=== PATIENT | male | born 1960 | race Two or more races ===

== ENCOUNTER 2017-03-14 12:35 | Inpatient (IN) | payer OTHER ==
[2017-03-14 13:01] VITALS: BMI 19.8
--- NOTE | 2017-03-14 13:42 | HP ---
CIWA Score - CIWA Score Nausea/Vomitin-Mild Nausea/No Vomiting Muscle Tremors: 4-Moderate,w/Arms Extend Anxiety: 4-Mod. Anxious/Guarded Agitation: 1-Slight > Activity Paroxysmal Sweats: 1-Minimal Palms Moist Orientation: 1-Uncertain about Date Tacttile Disturbances: 1-Very Mild Itch/Numbness Auditory Disturbances: 1-Very Mild Visual Disturbances: 1-Very Mild Sensitivity Headache: 1-Very Mild CIWA-Ar Total Score: 16 Admission [facility] - HPI Chief Complaint: I don't want to lose my job, I have to stop drinking. Allergies/Adverse Reactions: Allergies Allergy/AdvReac Type Severity Reaction Status Date / Time No Known Allergies Allergy Verified 12/02/15 14:05 History of Present Illness: 56 yo gentleman here for detox from alcohol - no seizure x 1 year and was taken off seizure meds - last detox 3 months ago at [facility]. Exam Limitations: Clinical Condition - Ebola screening Have you traveled outside of the country in the last 21 days: No Have you had contact with anyone from an Ebola affected area: No Have you been sick,other than usual withdrawal symptoms: No Do you have a fever: No - Review of Systems Constitutional: Loss of Appetite, Malaise, Changes in sleep, Weakness EENT: reports: No Symptoms Reported Respiratory: reports: Cough Cardiac: reports: No Symptoms Reported GI: reports: Nausea, Poor Appetite : reports: Frequency Musculoskeletal: reports: No Symptoms Reported Integumentary: reports: Rash (both arms (dry, scaly,itchy)) Neuro: reports: Headache, Tremors Endocrine: reports: No Symptoms Reported Hematology: reports: No Symptoms Reported Psychiatric: reports: Judgement Intact, Mood/Affect Appropiate, Anxious Other Systems: Reviewed and Negative Patient History - Patient Medical History Hx Anemia: No Hx Asthma: No Hx Chronic Obstructive Pulmonary Disease (COPD): No Hx Cancer: No Hx Cardiac Disorders: No Hx Congestive Heart Failure: No Hx Hypertension: Yes (history of meds but none now) Hx Hypercholesterolemia: No Hx Pacemaker: No HX Cerebrovascular Accident: No Hx Seizures: Yes (states none x 1 year and taken off meds) Hx Dementia: No Hx Diabetes: No Hx Gastrointestinal Disorders: No Hx Liver Disease: No Hx Genitourinary Disorders: No Hx Sexually Transmitted Disorders: No Hx Renal Disease (ESRD): No Hx Thyroid Disease: No Hx Human Immunodeficiency Virus (HIV): No Hx Hepatitis C: No Hx Depression: Yes (on meds) Hx Suicide Attempt: No Hx Bipolar Disorder: No Hx Schizophrenia: Yes (I hear someone call me but no one is there) Other Medical History: PPD+ - treated - Patient Surgical History Past Surgical History: No Hx Neurologic Surgery: No Hx Cataract Extraction: No Hx Cardiac Surgery: No Hx Lung Surgery: No Hx Breast Surgery: No Hx Breast Biopsy: No Hx Abdominal Surgery: No Hx Appendectomy: No Hx Cholecystectomy: No Hx Genitourinary Surgery: No Hx Section: No Hx Orthopedic Surgery: No Anesthesia Reaction: No - PPD History Previous Implant?: Yes Documented Results: Positive w/o proof (states took medicine ' a long time ago') PPD to be Administered?: No - Reproductive History Patient is a Female of Child Bearing Age (11 -55 yrs old): No (male) - Smoking Cessation Smoking history: Current every day smoker Have you smoked in the past 12 months: Yes Aproximately how many cigarettes per day: 20 Hx Chewing Tobacco Use: No Initiated information on smoking cessation: Yes 'Breaking Loose' booklet given: 03/14/17 (give on floor) - Substance & Tx. History Hx Alcohol Use: Yes Hx Substance Use: No Substance Use Type: Alcohol Hx Substance Use Treatment: Yes (detox) - Substances Abused Alcohol Route: Oral Frequency: Daily Amount used: two six packs 8oz beer Age of first use: 27 Date of Last Use: 03/14/17 Family Disease History - Family Disease History Family Disease History: CA: Mother (), Other: Grandparent (ALCOHOL), Father (SEIZURE DISORDER,), Mother, Brother (one in [place], healthy), Sister (one in [place], healthy) Admission Physical Exam [facility] - Vital Signs Vital Signs: Vital Signs - 24 hr 03/14/17 12:55 Temperature 96.2 F L Pulse Rate 117 H Respiratory 20 Rate Blood Pressure 113/85 - Physical General Appearance: Yes: Nourished, Appropriately Dressed, Moderate Distress, Anxious HEENTM: Yes: Hearing grossly Normal, Normal ENT Inspection, Normocephalic, Normal Voice, Pharynx Normal Respiratory: Yes: No Respiratory Distress, Rhonchi Neck: Yes: No masses,lesions,Nodules, Supple Breast: Yes: Breast Exam Deferred Cardiology: Yes: Regular Rhythm, Regular Rate Abdominal: Yes: Soft Genitourinary: Yes: Frequency Back: Yes: Normal Inspection Musculoskeletal: Yes: full range of Motion, Gait Steady Extremities: Yes: Normal Inspection, Non-Tender Neurological: Yes: Alert, Normal Mood/Affect, Normal Response Integumentary: Yes: Normal Color, Warm, Rash (both arms with dry, circumscribed patch with silvery scales) Lymphatic: Yes: Within Normal Limits - Diagnostic (1) Alcohol dependence with uncomplicated withdrawal Current Visit: Yes Status: Chronic (2) HTN (hypertension) Current Visit: Yes Status: Inactive Qualifiers: Hypertension type: essential hypertension Qualified Code(s): I10 - Essential (primary) hypertension; I10 - Essential (primary) hypertension; I10 - Essential (primary) hypertension (3) Nicotine dependence Current Visit: Yes Status: Chronic Qualifiers: Nicotine product type: cigarettes Substance use status: uncomplicated Qualified Code(s): F17.210 - Nicotine dependence, cigarettes, uncomplicated; F17.210 - Nicotine dependence, cigarettes, uncomplicated (4) Seizure disorder Current Visit: Yes Status: Chronic (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
[2017-03-14] MEDS ORDERED: ACETAMINOPHEN 325 MG TABLET (FP) PO PRN (13:48)
[2017-03-14] MEDS ORDERED: hydrOXYzine PAMOATE 50 MG CAPSULE (FP) PO PRN (13:48)
[2017-03-14] MEDS ORDERED: MENTHOL/PHENOL 1 EACH UD MM PRN (13:48)
[2017-03-14] MEDS ORDERED: guaiFENesin/D-METHORPHAN HB 10 ML UNIT-DOSE CUPS PO PRN (13:48)
[2017-03-14] MEDS ORDERED: IBUPROFEN 400 MG TABLET (FP) PO PRN (13:48)
[2017-03-14] MEDS ORDERED: MAG HYDROX/AL HYDROX/SIMETH 30 ML UNIT-DOSE CUP PO PRN (13:48)
[2017-03-14] MEDS ORDERED: LOPERAMIDE HCL 2 MG CAPSULE PO PRN (13:48)
[2017-03-14] MEDS ORDERED: chlordiazePOXIDE HCL 25 MG CAPSULE PO PRN (13:48)
[2017-03-14] MEDS ORDERED: MAGNESIUM HYDROX 2400MG/30ML ORAL SUSPENSION 30 ML CUP PO PRN (13:48)
[2017-03-14] MEDS ORDERED: MAGNESIUM CITRATE 300 ML BOTTLE PO PRN (13:48)
[2017-03-14] MEDS ORDERED: P-EPHED 60MG/TRIPROLIDI 2.5MG TABLET PO PRN (13:48)
[2017-03-14] MEDS ORDERED: HYDROCORTISONE 1% TOPICAL OINT 30 GM TUBE TP PRN (13:50)
[2017-03-14] MEDS ORDERED: chlordiazePOXIDE HCL 25 MG CAPSULE PO ONE (14:15)
[2017-03-14] MEDS: chlordiazePOXIDE HCL 25 MG CAPSULE PO SCH ×2 (17:55→22:18)
[2017-03-14] MEDS: NICOTINE 21 MG/24 HOURS TOPICAL PATCH TD SCH (17:57)
[2017-03-14] MEDS ORDERED: diphenhydrAMINE HCL 50 MG CAPSULE PO PRN (22:00)
[2017-03-14] MEDS: THIAMINE HCL 100 MG TABLET (FP) PO SCH (22:18)
[2017-03-14 23:05] LABS: URINE APPEARANCE CLEAR; URINE BILIRUBIN NEGATIVE (NEGATIVE); URINE BLOOD 1+ (NEGATIVE); URINE COLOR YELLOW; URINE GLUCOSE (UA) NEGATIVE (NEGATIVE); URINE KETONE NEGATIVE (NEGATIVE); URINE NITRITE NEGATIVE (NEGATIVE); URINE PROTEIN NEGATIVE (NEGATIVE); URINE UROBILINOGEN NEGATIVE mg/dL (0.2-1.0)
[2017-03-14 23:09] LABS: URINE HYALINE CAST 8 /lpf; URINE MUCUS RARE; URINE WBC <1 /hpf (3-5)
[2017-03-15] MEDS: chlordiazePOXIDE HCL 25 MG CAPSULE PO SCH ×4 (05:20→22:11)
--- NOTE | 2017-03-15 08:41 | CONSULT ---
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 He started drinmking alcohol at age 27, consumes 2x 6pk(8oz) of beer daily. Last drank on 03/14 Medical History: Significant for Seizure disorder, hypertension, psoriasiform eczema and history of prophylactic treatment for TB. Smokes cigarettes 1ppd Psychiatric History: Denies history of previous psychiatric treatment Physical/Sexual Abuse/Trauma History: Denies history of verbal, physical or sexual abuse as well as DV relationship Additional Comment: Reports history of 3 previous arrests for drinking in public and trspassing([place]ing in the park) Mental Status Exam - Mental Status Exam Alert and Oriented to: Time, Place, Person Cognitive Function: Fair Patient Appearance: Well Groomed Mood: Depressed Affect: Appropriate Patient Behavior: Cooperative Speech Pattern: Clear Voice Loudness: Normal Thought Process: Intact, Goal Oriented Hallucinations: Denies Suicidal Ideation: Denies Homicidal Ideation: Denies Insight/Judgement: Poor Sleep: Poorly (Claims he took Benadryl last night and it helped him) Appetite: Fair Muscle strength/Tone: Normal Gait/Station: Normal Psychiatric Findings - Problem List ([place] 1, 2,3) (1) Alcohol-induced mood disorder Current Visit: Yes Status: Acute (2) Alcohol dependence with uncomplicated withdrawal Current Visit: Yes Status: Chronic (3) Nicotine dependence Current Visit: Yes Status: Chronic Qualifiers: Nicotine product type: cigarettes Substance use status: uncomplicated Qualified Code(s): F17.210 - Nicotine dependence, cigarettes, uncomplicated; F17.210 - Nicotine dependence, cigarettes, uncomplicated (4) Psoriasiform eczema Current Visit: Yes Status: Chronic (5) Seizure disorder Current Visit: Yes Status: Chronic (6) HTN (hypertension) Current Visit: Yes Status: Inactive Qualifiers: Hypertension type: essential hypertension Qualified Code(s): I10 - Essential (primary) hypertension; I10 - Essential (primary) hypertension; I10 - Essential (primary) hypertension (7) PPD positive, treated Current Visit: Yes Status: Acute - Initial Treatment Plan Initial Treatment Plan: Continue inpatient detoxification
[2017-03-15 09:49] LABS: MCH 31.6 pg (25.7-33.7); MCHC 33.5 g/dl (32.0-35.9); MEAN CELL VOLUME 94.3 fl (80-96); PLATELET COUNT 139 K/MM3 (134-434); RDW 14.4 % (11.9-15.9); WHITE BLOOD COUNT 5.9 K/mm3 (4.0-10.0)
[2017-03-15 10:03] LABS: ALBUMIN 3.5 g/dl (3.4-5.0); ALK PHOS 77 U/L (45-117); ANION GAP 8 (8-16); BILIRUBIN,TOTAL 1.1 mg/dL (0.2-1.0); CALCIUM 8.6 mg/dL (8.5-10.1); CO2 28 mmol/L (21-32); CREATININE 0.6 mg/dL (0.7-1.3); GLUCOSE,RANDOM 87 mg/dL (74-106); SGOT/AST 57 U/L (15-37); SGPT/ALT 37 U/L (12-78)
[2017-03-15] MEDS: NICOTINE 21 MG/24 HOURS TOPICAL PATCH TD SCH ×2 (10:17→10:26)
[2017-03-15] MEDS: PRENATAL VITAMINS W/ FOLIC ACID TABLET (FP) PO SCH (10:17)
[2017-03-15] MEDS ORDERED: FLU VACCINE QUAD 60 MCG/0.5 ML (MDV 17-18) IM ONE (12:00)
[2017-03-15 14:12] LABS: URINE LEUK ESTERASE Negative (NEGATIVE)
--- NOTE | 2017-03-15 16:53 | PN ---
S CIWA - CIWA Score Nausea/Vomitin Muscle Tremors: 5 Anxiety: 4-Mod. Anxious/Guarded Agitation: 4-Moderately Restless Paroxysmal Sweats: 4-Forehead w/Sweat Beads Orientation: 0-Oriented Tacttile Disturbances: 1-Very Mild Itch/Numbness Auditory Disturbances: 0-None Visual Disturbances: 0-None Headache: 0-None Present CIWA-Ar Total Score: 21 [facility] Progress Note (SOAP) Subjective: Tremor, chills, diarrhea, dizziness, sweating Objective: 03/15/17 16:50 Last Vital Signs Temp Pulse Resp BP Pulse Ox 97.0 F L 110 H 20 135/89 03/15/17 13:17 03/15/17 13:17 03/15/17 13:17 03/15/17 13:17 tachycardic at 110 Laboratory Tests 03/14/17 03/15/17 03/15/17 22:45 07:30 07:30 WBC 5.9 D RBC 4.23 Hgb 13.4 Hct 39.9 MCV 94.3 MCH 31.6 MCHC 33.5 RDW 14.4 Plt Count 139 MPV 8.0 Sodium 141 Potassium 3.7 Chloride 105 Carbon Dioxide 28 Anion Gap 8 BUN 12 D Creatinine 0.6 L Creat Clearance w eGFR > 60 Random Glucose 87 D Calcium 8.6 Total Bilirubin 1.1 H AST 57 H D ALT 37 Alkaline Phosphatase 77 Total Protein 8.0 Albumin 3.5 Urine Color Yellow Urine Appearance Clear Urine pH 5.0 Ur Specific [place] 1.010 Urine Protein Negative Urine Glucose (UA) Negative Urine Ketones Negative Urine Blood 1+ H Urine Nitrite Negative Urine Bilirubin Negative Urine Urobilinogen Negative Ur Leukocyte Esterase Negative Urine RBC None Urine WBC <1 Hyaline Casts 8 Urine Mucus Rare RPR Titer 03/15/17 07:30 WBC RBC Hgb Hct MCV MCH MCHC RDW Plt Count MPV Sodium Potassium Chloride Carbon Dioxide Anion Gap BUN Creatinine Creat Clearance w eGFR Random Glucose Calcium Total Bilirubin AST ALT Alkaline Phosphatase Total Protein Albumin Urine Color Urine Appearance Urine pH Ur Specific [place] Urine Protein Urine Glucose (UA) Urine Ketones Urine Blood Urine Nitrite Urine Bilirubin Urine Urobilinogen Ur Leukocyte Esterase Urine RBC Urine WBC Hyaline Casts Urine Mucus RPR Titer Nonreactive Labs noted: UA with microscopic hematuria Assessment: 03/15/17 16:51 Withdrawal symptoms Noted with tachycardia and microscopic hematuria Plan: Continue detox Tachycardia most likely secondary to alcohol withdrawal: encouraged to drink lots of water Microscopic hematuria: encourage to drink lots of water, repeat UA
[2017-03-15 20:02] LABS: URINE APPEARANCE CLEAR; URINE BILIRUBIN NEGATIVE (NEGATIVE); URINE BLOOD NEGATIVE (NEGATIVE); URINE COLOR YELLOW; URINE GLUCOSE (UA) 3+ (NEGATIVE); URINE KETONE NEGATIVE (NEGATIVE); URINE NITRITE NEGATIVE (NEGATIVE)
[2017-03-15 20:07] LABS: URINE PROTEIN 1+ (NEGATIVE)
[2017-03-15 20:09] LABS: URINE MUCUS RARE; URINE RBC 14 /hpf (0-3); URINE WBC 3 /hpf (3-5)
[2017-03-15] MEDS: THIAMINE HCL 100 MG TABLET (FP) PO SCH (22:11)
[2017-03-15 22:53] LABS: URINE LEUK ESTERASE Negative (NEGATIVE)
[2017-03-16] MEDS: chlordiazePOXIDE HCL 25 MG CAPSULE PO SCH ×2 (05:36→10:19)
[2017-03-16] MEDS: PRENATAL VITAMINS W/ FOLIC ACID TABLET (FP) PO SCH (10:19)
--- NOTE | 2017-03-16 10:19 | EKG ---
Test Reason : Blood Pressure : / mmHG Vent. Rate : 102 BPM Atrial Rate : 102 BPM P-R Int : 128 ms QRS Dur : 098 ms QT Int : 330 ms P-R-T Axes : 058 080 080 degrees QTc Int : 430 ms SINUS TACHYCARDIA OTHERWISE NORMAL ECG WHEN COMPARED WITH ECG OF 23-OCT-2014 17:53, NO SIGNIFICANT CHANGE WAS FOUND Confirmed by RADHA JOEL MD ([id number]) on 03/16/2017 10:18:41 AM Referred By: Confirmed By:RADHA JOEL MD
[2017-03-16] MEDS: NICOTINE 21 MG/24 HOURS TOPICAL PATCH TD SCH (10:20)
--- NOTE | 2017-03-16 12:15 | PN ---
[facility] CIWA - CIWA Score Nausea/Vomitin-No Nausea/No Vomiting Muscle Tremors: 3 Anxiety: 4-Mod. Anxious/Guarded Agitation: 0-Normal Activity Paroxysmal Sweats: 4-Forehead w/Sweat Beads Orientation: 0-Oriented Tacttile Disturbances: 1-Very Mild Itch/Numbness Auditory Disturbances: 1-Very Mild Visual Disturbances: 3-Moderate Sensitivity Headache: 0-None Present CIWA-Ar Total Score: 16 [facility] Progress Note (SOAP) Subjective: Diarrhea, Tremors, Sweating, Body Aches, Interrupted sleep. Objective: PT. A & O X 3, OBSERVED AMBULATING ON UNIT. NO ACUTE DISTRESS. PT. DENIES CHEST PAIN. 03/16/17 12:16 Vital Signs Temperature 95.1 F L 03/16/17 09:37 Pulse Rate 109 H 03/16/17 09:37 Respiratory Rate 18 03/16/17 09:37 Blood Pressure 148/97 03/16/17 09:37 O2 Sat by Pulse Oximetry (%) Laboratory Tests 03/14/17 03/15/17 03/15/17 22:45 07:30 07:30 WBC 5.9 D RBC 4.23 Hgb 13.4 Hct 39.9 MCV 94.3 MCH 31.6 MCHC 33.5 RDW 14.4 Plt Count 139 MPV 8.0 Sodium 141 Potassium 3.7 Chloride 105 Carbon Dioxide 28 Anion Gap 8 BUN 12 D Creatinine 0.6 L Creat Clearance w eGFR > 60 Random Glucose 87 D Calcium 8.6 Total Bilirubin 1.1 H AST 57 H D ALT 37 Alkaline Phosphatase 77 Total Protein 8.0 Albumin 3.5 Urine Color Yellow Urine Appearance Clear Urine pH 5.0 Ur Specific [place] 1.010 Urine Protein Negative Urine Glucose (UA) Negative Urine Ketones Negative Urine Blood 1+ H Urine Nitrite Negative Urine Bilirubin Negative Urine Urobilinogen Negative Ur Leukocyte Esterase Negative Urine RBC None Urine WBC <1 Ur Epithelial Cells Hyaline Casts 8 Urine Mucus Rare RPR Titer 03/15/17 03/15/17 07:30 17:18 WBC RBC Hgb Hct MCV MCH MCHC RDW Plt Count MPV Sodium Potassium Chloride Carbon Dioxide Anion Gap BUN Creatinine Creat Clearance w eGFR Random Glucose Calcium Total Bilirubin AST ALT Alkaline Phosphatase Total Protein Albumin Urine Color Yellow Urine Appearance Clear Urine pH 6.0 Ur Specific [place] 1.025 Urine Protein 1+ H Urine Glucose (UA) 3+ H Urine Ketones Negative Urine Blood Negative Urine Nitrite Negative Urine Bilirubin Negative Urine Urobilinogen 2.0 Ur Leukocyte Esterase Negative Urine RBC 14 Urine WBC 3 Ur Epithelial Cells Rare Hyaline Casts Urine Mucus Rare RPR Titer Nonreactive LABS NOTED. RESULTS OF REPEAT UA NOTED. 03/16/17 12:18 Assessment: 03/16/17 12:17 WITHDRAWAL SYMPTOMS. Plan: CONTINUE DETOX. INCREASE DAILY PO FLUID INTAKE.
[2017-03-16] MEDS: chlordiazePOXIDE 5 MG CAPSULE PO SCH ×2 (17:46→22:09)
[2017-03-16] MEDS: THIAMINE HCL 100 MG TABLET (FP) PO SCH (22:09)
[2017-03-17] MEDS: chlordiazePOXIDE 5 MG CAPSULE PO SCH (06:18)
[2017-03-17 09:42] VITALS: BP 150/84; PULSE 84; TEMP 96.4
--- NOTE | 2017-03-17 15:51 | DS ---
[facility] Detox Discharge Summary Admission Date: 03/14/17 Discharge Date: 03/17/17 - History Present History: Alcohol Dependence Additional Comments: PATIENT REPORTS MINIMAL DETOX SYMPTOMS AND THAT HE FEELS WELL OVERALL AT TIME OF DISCHARGE. PATIENT DENIES SUICIDAL IDEATION AND HOMICIDAL IDEATION AND HE DENIES HEARING VOICES AT TIME OF DISCHARGE. PATIENT ADVISED TO CONSIDER LOCAL 12 -STEP / AA OUTPATIENT SUPPORT GROUP PROGRAMS FOR AFTERCARE. PATIENT DISCHARGED FROM DETOX UNIT IN STABLE MEDICAL CONDITION. Pertinent Past History: HTN, Depression, Schizophrenia, Psoriasisform Eczema, History of Seizures, History of Positive PPD. - Physical Exam Results Vital Signs: Vital Signs Temperature 96.4 F L 03/17/17 09:41 Pulse Rate 84 03/17/17 09:41 Respiratory Rate 18 03/17/17 09:41 Blood Pressure 150/84 03/17/17 09:41 O2 Sat by Pulse Oximetry (%) Pertinent Admission Physical Exam Findings: WITHDRAWAL SYMPTOMS. Laboratory Tests 03/14/17 03/15/17 03/15/17 22:45 07:30 07:30 WBC 5.9 D RBC 4.23 Hgb 13.4 Hct 39.9 MCV 94.3 MCH 31.6 MCHC 33.5 RDW 14.4 Plt Count 139 MPV 8.0 Sodium 141 Potassium 3.7 Chloride 105 Carbon Dioxide 28 Anion Gap 8 BUN 12 D Creatinine 0.6 L Creat Clearance w eGFR > 60 Random Glucose 87 D Calcium 8.6 Total Bilirubin 1.1 H AST 57 H D ALT 37 Alkaline Phosphatase 77 Total Protein 8.0 Albumin 3.5 Urine Color Yellow Urine Appearance Clear Urine pH 5.0 Ur Specific [place] 1.010 Urine Protein Negative Urine Glucose (UA) Negative Urine Ketones Negative Urine Blood 1+ H Urine Nitrite Negative Urine Bilirubin Negative Urine Urobilinogen Negative Ur Leukocyte Esterase Negative Urine RBC None Urine WBC <1 Ur Epithelial Cells Hyaline Casts 8 Urine Mucus Rare RPR Titer 03/15/17 03/15/17 07:30 17:18 WBC RBC Hgb Hct MCV MCH MCHC RDW Plt Count MPV Sodium Potassium Chloride Carbon Dioxide Anion Gap BUN Creatinine Creat Clearance w eGFR Random Glucose Calcium Total Bilirubin AST ALT Alkaline Phosphatase Total Protein Albumin Urine Color Yellow Urine Appearance Clear Urine pH 6.0 Ur Specific [place] 1.025 Urine Protein 1+ H Urine Glucose (UA) 3+ H Urine Ketones Negative Urine Blood Negative Urine Nitrite Negative Urine Bilirubin Negative Urine Urobilinogen 2.0 Ur Leukocyte Esterase Negative Urine RBC 14 Urine WBC 3 Ur Epithelial Cells Rare Hyaline Casts Urine Mucus Rare RPR Titer Nonreactive LABS NOTED. - Treatment Hospital Course: Detox Protocol Followed, Detoxed Safely, Responded well, Discharged Condition Good Patient has Accepted a Rehab Referral to: NO. PT ADVISED TO CONSIDER LOCAL 12- STEP/AA SUPPORT GROUPS FOR AFTERCARE. - Medication Discharge Medications: Ambulatory Orders Mirtazapine [Remeron -] 15 mg PO HS 03/14/17 - Diagnosis (1) Alcohol-induced mood disorder Status: Acute (2) PPD positive, treated Status: Chronic (3) Alcohol dependence with uncomplicated withdrawal Status: Acute (4) Nicotine dependence Status: Chronic Qualifiers: Nicotine product type: cigarettes Substance use status: uncomplicated Qualified Code(s): F17.210 - Nicotine dependence, cigarettes, uncomplicated; F17.210 - Nicotine dependence, cigarettes, uncomplicated (5) Psoriasiform eczema Status: Chronic (6) Seizure disorder Status: Chronic (7) Hypertension Status: Chronic Qualifiers: Hypertension type: essential hypertension Qualified Code(s): I10 - Essential (primary) hypertension; I10 - Essential (primary) hypertension; I10 - Essential (primary) hypertension - AMA Did Patient Leave Against Medical Advice: No
[2017-03-17] MEDS ORDERED: chlordiazePOXIDE HCL 10 MG CAPSULE PO SCH (17:00)
== END 2017-03-17 10:56 | disposition home or self-care (01) | DRG 775 ==
LOC: YASAS 12:35 → Y3N 14:07
PROVIDERS: ADMIT Internal Medicine; ATTEND Internal Medicine
PROC: HZ2ZZZZ Detoxification Services for Substance Abuse Treatment (ICD-10-PCS; principal; 2017-03-14)
DX: F10.230 Alcohol dependence with withdrawal, uncomplicated (principal); F10.24 Alcohol dependence with alcohol-induced mood disorder; F17.210 Nicotine dependence, cigarettes, uncomplicated; I10 Essential (primary) hypertension; L30.8 Other specified dermatitis; R00.0 Tachycardia, unspecified; R31.29 Other microscopic hematuria; R76.11 Nonspecific reaction to tuberculin skin test without active tuberculosis; Z86.69 Personal history of other diseases of the nervous system and sense organs; Z59.0 Homelessness
CPT/HCPCS: 36415; 71020-TC; 80053; 81003; 81015; 85027; 86593; 93005; 93010

== ENCOUNTER 2017-12-26 00:48 | Inpatient (IN) | payer OTHER ==
--- NOTE | 2017-12-26 01:12 | HP ---
Admission [facility] - HPI Allergies/Adverse Reactions: Allergies Allergy/AdvReac Type Severity Reaction Status Date / Time No Known Allergies Allergy Verified 03/14/17 17:20 Patient History - Patient Medical History Hx Anemia: No Hx Asthma: No Hx Chronic Obstructive Pulmonary Disease (COPD): No Hx Cancer: No Hx Cardiac Disorders: No Hx Congestive Heart Failure: No Hx Hypertension: No Hx Hypercholesterolemia: No Hx Pacemaker: No HX Cerebrovascular Accident: No Hx Seizures: Yes (alcohol related last time 11/2016) Hx Dementia: No Hx Diabetes: No Hx Gastrointestinal Disorders: No Hx Liver Disease: No Hx Genitourinary Disorders: No Hx Sexually Transmitted Disorders: No Hx Renal Disease (ESRD): No Hx Thyroid Disease: No Hx Human Immunodeficiency Virus (HIV): No Hx Hepatitis C: No Hx Depression: Yes Hx Suicide Attempt: No Hx Bipolar Disorder: No Hx Schizophrenia: Yes (I hear someone call me but no one is there) - Patient Surgical History Past Surgical History: No Hx Neurologic Surgery: No Hx Cataract Extraction: No Hx Cardiac Surgery: No Hx Lung Surgery: No Hx Breast Surgery: No Hx Breast Biopsy: No Hx Abdominal Surgery: No Hx Appendectomy: No Hx Cholecystectomy: No Hx Genitourinary Surgery: No Hx Section: No Hx Orthopedic Surgery: No Anesthesia Reaction: No - PPD History Results: positive - Smoking Cessation Smoking history: Current every day smoker Have you smoked in the past 12 months: Yes Aproximately how many cigarettes per day: 20 Hx Chewing Tobacco Use: No Family Disease History - Family Disease History Family Disease History: CA: Mother (), Other: Grandparent (ALCOHOL), Father (SEIZURE DISORDER,), Mother, Brother (one in [place], healthy), Sister (one in [place], healthy) [facility] Breath Alcohol Content Breath Alcohol Content: 0.290
--- NOTE | 2017-12-26 01:31 | HP ---
CIWA Score - CIWA Score Nausea/Vomitin Muscle Tremors: 4-Moderate,w/Arms Extend Anxiety: 3 Agitation: 2 Paroxysmal Sweats: 1-Minimal Palms Moist Orientation: 2-Disoriented Date<2 days Tacttile Disturbances: 2-Mild Itch/Numbness/Burn Auditory Disturbances: 0-None Visual Disturbances: 0-None Headache: 0-None Present CIWA-Ar Total Score: 17 Admission ROS S - HPI Chief Complaint: ALCOHOL WITHDRAWAL SYMPTOMS Allergies/Adverse Reactions: Allergies Allergy/AdvReac Type Severity Reaction Status Date / Time No Known Allergies Allergy Verified 12/26/17 04:03 History of Present Illness: 57 years old male with a long history of alcohol dependence is seeking admission to detox. Patient has been in previous detox and reports insignificant period of sobriety. He has medical history of hypertension, depression and seizures. He denies suicide attempt and suicidal ideation at this time. Exam Limitations: No Limitations - Ebola screening Have you traveled outside of the country in the last 21 days: No Have you had contact with anyone from an Ebola affected area: No Do you have a fever: No - Review of Systems Constitutional: Chills, Malaise, Changes in sleep, Weakness EENT: reports: No Symptoms Reported Respiratory: reports: No Symptoms reported, Other Cardiac: reports: No Symptoms Reported GI: reports: Diarrhea, Nausea, Tarry Stools : reports: No Symptoms Reported Musculoskeletal: reports: No Symptoms Reported Integumentary: reports: No Symptoms Reported Neuro: reports: Numbness, Tremors, Weakness Endocrine: reports: No Symptoms Reported Hematology: reports: No Symptoms Reported Psychiatric: reports: Anxious, Depressed Patient History - Patient Medical History Hx Anemia: No Hx Asthma: No Hx Chronic Obstructive Pulmonary Disease (COPD): No Hx Cancer: No Hx Cardiac Disorders: No Hx Congestive Heart Failure: No Hx Hypertension: No Hx Hypercholesterolemia: No Hx Pacemaker: No HX Cerebrovascular Accident: No Hx Seizures: Yes (alcohol related last time 11/2016) Hx Dementia: No Hx Diabetes: No Hx Gastrointestinal Disorders: No Hx Liver Disease: No Hx Genitourinary Disorders: No Hx Sexually Transmitted Disorders: No Hx Renal Disease (ESRD): No Hx Thyroid Disease: No Hx Human Immunodeficiency Virus (HIV): No Hx Hepatitis C: No Hx Depression: Yes Hx Suicide Attempt: No Hx Bipolar Disorder: No Hx Schizophrenia: Yes (I hear someone call me but no one is there) - Patient Surgical History Past Surgical History: No Hx Neurologic Surgery: No Hx Cataract Extraction: No Hx Cardiac Surgery: No Hx Lung Surgery: No Hx Breast Surgery: No Hx Breast Biopsy: No Hx Abdominal Surgery: No Hx Appendectomy: No Hx Cholecystectomy: No Hx Genitourinary Surgery: No Hx Section: No Hx Orthopedic Surgery: No Anesthesia Reaction: No - PPD History Previous Implant?: No Documented Results: Negative w/o proof Implanted On Prior [facility] Admission?: Yes Results: positive PPD to be Administered?: No - Reproductive History Patient is a Female of Child Bearing Age (11 -55 yrs old): No - Smoking Cessation Smoking history: Current every day smoker Have you smoked in the past 12 months: Yes Aproximately how many cigarettes per day: 20 Hx Chewing Tobacco Use: No Initiated information on smoking cessation: Yes 'Breaking Loose' booklet given: 12/26/17 - Substance & Tx. History Hx Alcohol Use: Yes Hx Substance Use: No Substance Use Type: Alcohol Hx Substance Use Treatment: No - Substances Abused Alcohol Route: Oral Frequency: Daily Amount used: beer - 2 packs Age of first use: 27 Date of Last Use: 12/26/17 Family Disease History - Family Disease History Family Disease History: CA: Mother (), Other: Grandparent (ALCOHOL), Father (SEIZURE DISORDER,), Mother, Brother (one in [place], healthy), Sister (one in [place], healthy) Admission Physical Exam BHS - Physical General Appearance: Yes: Moderate Distress HEENTM: Yes: EOMI, Normal ENT Inspection, Normocephalic, Normal Voice, GASTON, Tm' s normal Respiratory: Yes: Lungs Clear, Normal Breath Sounds, No Respiratory Distress Neck: Yes: Supple Breast: Yes: Breast Exam Deferred Cardiology: Yes: Regular Rhythm, Regular Rate Abdominal: Yes: Normal Bowel Sounds Genitourinary: Yes: Within Normal Limits Musculoskeletal: Yes: Back pain, Muscle Pain Extremities: Yes: Tremors Neurological: Yes: Alert, Normal Mood/Affect Integumentary: Yes: Normal Color Lymphatic: Yes: Within Normal Limits - Diagnostic (1) Alcohol dependence with uncomplicated withdrawal Current Visit: Yes Status: Acute (2) Nicotine dependence Current Visit: Yes Status: Chronic Qualifiers: Nicotine product type: cigarettes Substance use status: uncomplicated Qualified Code(s): F17.210 - Nicotine dependence, cigarettes, uncomplicated (3) PPD positive, treated Current Visit: Yes Status: Chronic (4) Seizure disorder Current Visit: Yes Status: Chronic (5) Alcohol-induced mood disorder Current Visit: No Status: Acute (6) Hypertension Current Visit: No Status: Chronic Qualifiers: Hypertension type: essential hypertension Qualified Code(s): I10 - Essential (primary) hypertension (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 Level of Care: Medically Managed Detox Regimen/Protocol: Librium BHS Breath Alcohol Content Breath Alcohol Content: 0.19 Vital Signs - Vital Signs Vital Signs Refused: No Temperature: 97.6 F Temperature Source: Oral Pulse Rate: 97 Respiratory Rate: 18 Blood Pressure: 154/100 BP Location: Right Arm - Height Height: 5 ft 5 in - Bowel Function Bowel Movement: No Urine Drug Screen - Test Device Lot Number: [id number] Expiration Date: 08/23/19 - Control Is Test Valid: Yes - Results Drug Screen Negative: No Urine Drug Screen Results: MERE-Cocaine, BZO-Benzodiazepines
[2017-12-26] MEDS ORDERED: guaiFENesin/D-METHORPHAN HB 10 ML UNIT-DOSE CUPS PO PRN (01:48)
[2017-12-26] MEDS ORDERED: P-EPHED 60MG/TRIPROLIDI 2.5MG TABLET PO PRN (01:48)
[2017-12-26] MEDS ORDERED: NICOTINE POLACRILEX 2 MG GUM BC PRN (01:48)
[2017-12-26] MEDS ORDERED: LOPERAMIDE HCL 2 MG CAPSULE PO PRN (01:48)
[2017-12-26] MEDS ORDERED: MAGNESIUM HYDROX 2400MG/30ML ORAL SUSPENSION 30 ML CUP PO PRN (01:48)
[2017-12-26] MEDS ORDERED: chlordiazePOXIDE HCL 25 MG CAPSULE PO PRN (01:48)
[2017-12-26] MEDS ORDERED: MAGNESIUM CITRATE 300 ML BOTTLE PO PRN (01:48)
[2017-12-26] MEDS ORDERED: ACETAMINOPHEN 325 MG TABLET (FP) PO PRN (01:48)
[2017-12-26] MEDS ORDERED: MAG HYDROX/AL HYDROX/SIMETH 30 ML UNIT-DOSE CUP PO PRN (01:48)
[2017-12-26] MEDS ORDERED: IBUPROFEN 400 MG TABLET (FP) PO PRN (01:48)
[2017-12-26] MEDS ORDERED: MENTHOL/PHENOL 1 EACH UD MM PRN (01:48)
[2017-12-26] MEDS ORDERED: cloNIDine HCL 0.1 MG TABLET PO ONE ×2 (04:08→21:15)
[2017-12-26] MEDS: chlordiazePOXIDE HCL 25 MG CAPSULE PO SCH ×4 (04:16→22:26)
[2017-12-26 10:25] LABS: HEMATOCRIT 34.6 % (35.4-49); HEMOGLOBIN 11.8 GM/dL (11.7-16.9); MCH 31.8 pg (25.7-33.7); MEAN CELL VOLUME 93.6 fl (80-96); MEAN PLT VOLUME 7.8 fl (7.5-11.1); PLATELET COUNT 147 K/MM3 (134-434); RDW 16.7 % (11.9-15.9); WHITE BLOOD COUNT 6.9 K/mm3 (4.0-10.0)
[2017-12-26] MEDS: PRENATAL VITAMINS W/ FOLIC ACID TABLET (FP) PO SCH (10:32)
[2017-12-26] MEDS: NICOTINE 14 MG/24 HOURS TOPICAL PATCH TD SCH (10:33)
[2017-12-26 10:42] LABS: CHLORIDE 105 mmol/L (98-107); POTASSIUM 4.3 mmol/L (3.5-5.1); SODIUM 139 mmol/L (136-145)
[2017-12-26 10:56] LABS: ALBUMIN 3.2 g/dl (3.4-5.0); ALK PHOS 91 U/L (45-117); ANION GAP 5 (8-16); BILIRUBIN,TOTAL 0.6 mg/dL (0.2-1.0); BLOOD UREA NITROGEN 12 mg/dL (7-18); CALCIUM 8.7 mg/dL (8.5-10.1); CO2 29 mmol/L (21-32); CREATININE 0.7 mg/dL (0.7-1.3); GLUCOSE,RANDOM 87 mg/dL (74-106); SGOT/AST 216 U/L (15-37); SGPT/ALT 205 U/L (12-78); TOT PROT 8.4 g/dl (6.4-8.2)
--- NOTE | 2017-12-26 14:34 | PN ---
S CIWA - CIWA Score Nausea/Vomitin Muscle Tremors: 3 Anxiety: 3 Agitation: 2 Paroxysmal Sweats: 1-Minimal Palms Moist Orientation: 0-Oriented Tacttile Disturbances: 1-Very Mild Itch/Numbness Auditory Disturbances: 1-Very Mild Visual Disturbances: 0-None Headache: 2-Mild CIWA-Ar Total Score: 16 BHS Progress Note (SOAP) Subjective: alert,irritable,anxious,interrupted sleep,tremor Objective: 12/26/17 14:31 Vital Signs Temperature 98.2 F 12/26/17 10:08 Pulse Rate 82 12/26/17 10:08 Respiratory Rate 18 12/26/17 10:08 Blood Pressure 159/95 12/26/17 10:08 O2 Sat by Pulse Oximetry (%) Vital Signs Temperature 98.2 F 12/26/17 10:08 Pulse Rate 82 12/26/17 10:08 Respiratory Rate 18 12/26/17 10:08 Blood Pressure 159/95 12/26/17 10:08 O2 Sat by Pulse Oximetry (%) Laboratory Last Values WBC 6.9 K/mm3 (4.0-10.0) 12/26/17 08:00 RBC 3.70 M/mm3 (4.00-5.60) L 12/26/17 08:00 Hgb 11.8 GM/dL (11.7-16.9) 12/26/17 08:00 Hct 34.6 % (35.4-49) L 12/26/17 08:00 MCV 93.6 fl (80-96) 12/26/17 08:00 MCH 31.8 pg (25.7-33.7) 12/26/17 08:00 MCHC 34.0 g/dl (32.0-35.9) 12/26/17 08:00 RDW 16.7 % (11.9-15.9) H 12/26/17 08:00 Plt Count 147 K/MM3 (134-434) 12/26/17 08:00 MPV 7.8 fl (7.5-11.1) 12/26/17 08:00 Sodium 139 mmol/L (136-145) 12/26/17 08:00 Potassium 4.3 mmol/L (3.5-5.1) 12/26/17 08:00 Chloride 105 mmol/L (98-107) 12/26/17 08:00 Carbon Dioxide 29 mmol/L (21-32) 12/26/17 08:00 Anion Gap 5 (8-16) L 12/26/17 08:00 BUN 12 mg/dL (7-18) 12/26/17 08:00 Creatinine 0.7 mg/dL (0.7-1.3) 12/26/17 08:00 Creat Clearance w eGFR > 60 (>60) 12/26/17 08:00 Random Glucose 87 mg/dL (74-106) 12/26/17 08:00 Calcium 8.7 mg/dL (8.5-10.1) 12/26/17 08:00 Total Bilirubin 0.6 mg/dL (0.2-1.0) 12/26/17 08:00 AST 216 U/L (15-37) H D 12/26/17 08:00 ALT 205 U/L (12-78) H D 12/26/17 08:00 Alkaline Phosphatase 91 U/L (45-117) 12/26/17 08:00 Total Protein 8.4 g/dl (6.4-8.2) H 12/26/17 08:00 Albumin 3.2 g/dl (3.4-5.0) L 12/26/17 08:00 Assessment: 12/26/17 14:33 withdrawal symptom Plan: continue detox,d/c tylenol for elevation of alt,ast.repeat alt,ast,inr in am
[2017-12-26 18:54] LABS: URINE APPEARANCE CLEAR; URINE BILIRUBIN NEGATIVE (<2.0 mg/dL); URINE COLOR YELLOW; URINE GLUCOSE (UA) NEGATIVE (NEGATIVE); URINE KETONE NEGATIVE (NEGATIVE); URINE LEUK ESTERASE NEGATIVE (NEGATIVE); URINE NITRITE NEGATIVE (NEGATIVE); URINE UROBILINOGEN NEGATIVE mg/dL (0.2-1.0)
[2017-12-26 18:59] LABS: URINE PROTEIN 2+ (NEGATIVE)
[2017-12-26 19:06] LABS: EPI CELLS RARE /HPF (FEW); URINE BACTERIA RARE /hpf (NONE SEEN); URINE MUCUS RARE
[2017-12-26] MEDS ORDERED: MELATONIN 5 MG TABLETS PO PRN (22:00)
[2017-12-26] MEDS: THIAMINE HCL 100 MG TABLET (FP) PO SCH (22:26)
[2017-12-27] MEDS: chlordiazePOXIDE HCL 25 MG CAPSULE PO SCH ×4 (06:25→22:21)
--- NOTE | 2017-12-27 08:56 | EKG ---
Test Reason : Blood Pressure : / mmHG Vent. Rate : 064 BPM Atrial Rate : 064 BPM P-R Int : 100 ms QRS Dur : 098 ms QT Int : 394 ms P-R-T Axes : 047 079 080 degrees QTc Int : 406 ms SINUS RHYTHM WITH SHORT VA OTHERWISE NORMAL ECG WHEN COMPARED WITH ECG OF 14-MAR-2017 18:03, VENT. RATE HAS DECREASED BY 38 BPM Confirmed by ALEYDA BACH, NAVA ([id number]) on 12/27/2017 8:55:33 AM Referred By: Confirmed By:NAVA MAYNARD MD
[2017-12-27] MEDS: PRENATAL VITAMINS W/ FOLIC ACID TABLET (FP) PO SCH (10:29)
[2017-12-27] MEDS: NICOTINE 14 MG/24 HOURS TOPICAL PATCH TD SCH (10:30)
[2017-12-27 10:41] LABS: INR 1.14 (0.83-1.09); PROTHROMBIN TIME (PATIENT) 12.9 SEC (9.7-13.0)
[2017-12-27 10:42] LABS: SGOT/AST 104 U/L (15-37); SGPT/ALT 144 U/L (12-78)
--- NOTE | 2017-12-27 12:20 | HP ---
CIWA Score - CIWA Score Nausea/Vomitin Muscle Tremors: 3 Anxiety: 3 Agitation: 2 Paroxysmal Sweats: 1-Minimal Palms Moist Orientation: 0-Oriented Tacttile Disturbances: 1-Very Mild Itch/Numbness Auditory Disturbances: 1-Very Mild Visual Disturbances: 0-None Headache: 2-Mild CIWA-Ar Total Score: 16 Admission ROS BHS - HPI Allergies/Adverse Reactions: Allergies Allergy/AdvReac Type Severity Reaction Status Date / Time No Known Allergies Allergy Verified 12/26/17 04:03 - Ebola screening Have you traveled outside of the country in the last 21 days: No Have you had contact with anyone from an Ebola affected area: No Do you have a fever: No Patient History - Patient Medical History Hx Anemia: No Hx Asthma: No Hx Chronic Obstructive Pulmonary Disease (COPD): No Hx Cancer: No Hx Cardiac Disorders: No Hx Congestive Heart Failure: No Hx Hypertension: No Hx Hypercholesterolemia: No Hx Pacemaker: No HX Cerebrovascular Accident: No Hx Seizures: Yes (alcohol related last time 11/2016) Hx Dementia: No Hx Diabetes: No Hx Gastrointestinal Disorders: No Hx Liver Disease: No Hx Genitourinary Disorders: No Hx Sexually Transmitted Disorders: No Hx Renal Disease (ESRD): No Hx Thyroid Disease: No Hx Human Immunodeficiency Virus (HIV): No Hx Hepatitis C: No Hx Depression: Yes Hx Suicide Attempt: No Hx Bipolar Disorder: No Hx Schizophrenia: Yes (I hear someone call me but no one is there) - Patient Surgical History Past Surgical History: No Hx Neurologic Surgery: No Hx Cataract Extraction: No Hx Cardiac Surgery: No Hx Lung Surgery: No Hx Breast Surgery: No Hx Breast Biopsy: No Hx Abdominal Surgery: No Hx Appendectomy: No Hx Cholecystectomy: No Hx Genitourinary Surgery: No Hx Section: No Hx Orthopedic Surgery: No Anesthesia Reaction: No - PPD History Previous Implant?: No Documented Results: Negative w/o proof Implanted On Prior [facility] Admission?: Yes Results: positive - Smoking Cessation Smoking history: Current every day smoker Have you smoked in the past 12 months: Yes Aproximately how many cigarettes per day: 20 Hx Chewing Tobacco Use: No Initiated information on smoking cessation: Yes - Substances Abused Alcohol Route: Oral Frequency: Daily Amount used: beer - 2 packs Age of first use: 27 Date of Last Use: 12/26/17 Family Disease History - Family Disease History Family Disease History: [place]: Mother (), Other: Grandparent (ALCOHOL), Father (SEIZURE DISORDER,), Mother, Brother (one in [place], healthy), Sister (one in [place], healthy) Admission Physical Exam BHS - Vital Signs Vital Signs: Vital Signs - 24 hr 12/26/17 12/26/17 12/26/17 14:00 18:03 20:48 Temperature 97.5 F L 98.1 F 98.1 F Pulse Rate 81 68 61 Respiratory 20 18 18 Rate Blood Pressure 138/86 158/68 170/94 12/27/17 12/27/17 07:40 09:58 Temperature 98.1 F 97.7 F Pulse Rate 83 99 H Respiratory 20 16 Rate Blood Pressure 141/100 132/85 BHS Breath Alcohol Content Breath Alcohol Content: 0.19 Vital Signs - Weight Weight: 124 lb Weight Measurement Method: Standing Scale Urine Drug Screen - Results Drug Screen Negative: No Urine Drug Screen Results: MERE-Cocaine, BZO-Benzodiazepines
--- NOTE | 2017-12-27 12:22 | CONSULT ---
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 He suffered from black out spells and seizure disorder. His most recent Detox admission was @ [facility] 2-3 mo ago. Refer to addiction counselor summary for substance use history Medical History: Medical history of HTN, chronic low back pain Psychiatric History: He endorsed depression, past history of psychosis , no prior hhospitalization, has no recollection of treatment for his clinical symptoms Physical/Sexual Abuse/Trauma History: denied Mental Status Exam - Mental Status Exam Alert and Oriented to: Person Cognitive Function: Fair Patient Appearance: Unkempt Mood: Apathetic, Withdrawn Affect: Appropriate Patient Behavior: Appropriate, Cooperative Speech Pattern: Slurred Voice Loudness: Mildly Soft/Quiet Thought Process: Intact Thought Disorder: Not Present Hallucinations: None Suicidal Ideation: None Homicidal Ideation: None Insight/Judgement: Poor Sleep: Poorly Appetite: Fair Muscle strength/Tone: Normal Gait/Station: Normal
--- NOTE | 2017-12-27 12:25 | PN ---
S CIWA - CIWA Score Nausea/Vomitin-No Nausea/No Vomiting Muscle Tremors: 3 Anxiety: 3 Agitation: 3 Paroxysmal Sweats: 1-Minimal Palms Moist Orientation: 0-Oriented Tacttile Disturbances: 2-Mild Itch/Numbness/Burn Auditory Disturbances: 0-None Visual Disturbances: 0-None Headache: 0-None Present CIWA-Ar Total Score: 12 BHS Progress Note (SOAP) Subjective: alert sweat tremor low energy gi distress itching skin both arms Objective: 12/27/17 12:26 Vital Signs Temperature 97.7 F 12/27/17 09:58 Pulse Rate 99 H 12/27/17 09:58 Respiratory Rate 16 12/27/17 09:58 Blood Pressure 132/85 12/27/17 09:58 O2 Sat by Pulse Oximetry (%) Laboratory Last Values WBC 6.9 K/mm3 (4.0-10.0) 12/26/17 08:00 RBC 3.70 M/mm3 (4.00-5.60) L 12/26/17 08:00 Hgb 11.8 GM/dL (11.7-16.9) 12/26/17 08:00 Hct 34.6 % (35.4-49) L 12/26/17 08:00 MCV 93.6 fl (80-96) 12/26/17 08:00 MCH 31.8 pg (25.7-33.7) 12/26/17 08:00 MCHC 34.0 g/dl (32.0-35.9) 12/26/17 08:00 RDW 16.7 % (11.9-15.9) H 12/26/17 08:00 Plt Count 147 K/MM3 (134-434) 12/26/17 08:00 MPV 7.8 fl (7.5-11.1) 12/26/17 08:00 PT with INR 12.90 SEC (9.7-13.0) 12/27/17 07:40 INR 1.14 (0.83-1.09) H 12/27/17 07:40 Sodium 139 mmol/L (136-145) 12/26/17 08:00 Potassium 4.3 mmol/L (3.5-5.1) 12/26/17 08:00 Chloride 105 mmol/L (98-107) 12/26/17 08:00 Carbon Dioxide 29 mmol/L (21-32) 12/26/17 08:00 Anion Gap 5 (8-16) L 12/26/17 08:00 BUN 12 mg/dL (7-18) 12/26/17 08:00 Creatinine 0.7 mg/dL (0.7-1.3) 12/26/17 08:00 Creat Clearance w eGFR > 60 (>60) 12/26/17 08:00 Random Glucose 87 mg/dL (74-106) 12/26/17 08:00 Calcium 8.7 mg/dL (8.5-10.1) 12/26/17 08:00 Total Bilirubin 0.6 mg/dL (0.2-1.0) 12/26/17 08:00 AST 104 U/L (15-37) H D 12/27/17 07:40 ALT 144 U/L (12-78) H D 12/27/17 07:40 Alkaline Phosphatase 91 U/L (45-117) 12/26/17 08:00 Total Protein 8.4 g/dl (6.4-8.2) H 12/26/17 08:00 Albumin 3.2 g/dl (3.4-5.0) L 12/26/17 08:00 Urine Color Yellow 12/26/17 Unknown Urine Appearance Clear 12/26/17 Unknown Urine pH 5.0 (5.0-8.0) 12/26/17 Unknown Ur Specific [place] 1.018 (1.001-1.035) 12/26/17 Unknown Urine Protein 2+ (NEGATIVE) H 12/26/17 Unknown Urine Glucose (UA) Negative (NEGATIVE) 12/26/17 Unknown Urine Ketones Negative (NEGATIVE) 12/26/17 Unknown Urine Blood 2+ (NEGATIVE) H 12/26/17 Unknown Urine Nitrite Negative (NEGATIVE) 12/26/17 Unknown Urine Bilirubin Negative (<2.0 mg/dL) 12/26/17 Unknown Urine Urobilinogen Negative mg/dL (0.2-1.0) 12/26/17 Unknown Ur Leukocyte Esterase Negative (NEGATIVE) 12/26/17 Unknown Urine WBC (Auto) 1 /hpf (3-5) 12/26/17 Unknown Urine RBC (Auto) 7 /hpf (0-3) 12/26/17 Unknown Ur Epithelial Cells Rare /HPF (FEW) 12/26/17 Unknown Urine Bacteria Rare /hpf (NONE SEEN) 12/26/17 Unknown Urine Mucus Rare 12/26/17 Unknown RPR Titer Nonreactive (NONREACTIVE) 12/26/17 08:00 lab noted repeat ast alt Assessment: 12/27/17 12:27 withdrawal sx liver enzyme elevation dermatitis weight loss Plan: continue detox ensure 120 ml bid repeat alt ast eucerine cream
--- NOTE | 2017-12-27 12:30 | CONSULT ---
Psychiatric Findings - Problem List ([place] 1, 2,3) (1) Alcohol dependence with uncomplicated withdrawal Current Visit: Yes Status: Acute (2) Seizure disorder Current Visit: Yes Status: Chronic (3) Alcohol-induced mood disorder Current Visit: No Status: Acute (4) Hypertension Current Visit: No Status: Chronic Qualifiers: Hypertension type: essential hypertension Qualified Code(s): I10 - Essential (primary) hypertension - Initial Treatment Plan Initial Treatment Plan: Continue Detros treatment. Moonitor progress
[2017-12-27] MEDS: THIAMINE HCL 100 MG TABLET (FP) PO SCH (22:21)
[2017-12-27] MEDS: MINERAL OIL/PETROLAT/WATER TOPICAL CREAM 113 GM JAR TP SCH (22:33)
[2017-12-28] MEDS: chlordiazePOXIDE 5 MG CAPSULE PO SCH ×4 (06:29→22:18)
[2017-12-28] MEDS: PRENATAL VITAMINS W/ FOLIC ACID TABLET (FP) PO SCH (10:19)
[2017-12-28] MEDS: NICOTINE 14 MG/24 HOURS TOPICAL PATCH TD SCH (10:20)
--- NOTE | 2017-12-28 12:10 | PN ---
BHS Progress Note (SOAP) Subjective: alert,irritable,anxious,interrupted sleep,pain in the body Objective: 12/28/17 12:08 Vital Signs Temperature 97.8 F 12/28/17 09:45 Pulse Rate 105 H 12/28/17 09:45 Respiratory Rate 16 12/28/17 09:45 Blood Pressure 151/71 12/28/17 09:45 O2 Sat by Pulse Oximetry (%) Assessment: 12/28/17 12:08 withdrawal symptom Plan: continue detox
[2017-12-28 14:21] LABS: SGOT/AST 81 U/L (15-37); SGPT/ALT 124 U/L (12-78)
[2017-12-28] MEDS: THIAMINE HCL 100 MG TABLET (FP) PO SCH (22:17)
[2017-12-28] MEDS: MINERAL OIL/PETROLAT/WATER TOPICAL CREAM 113 GM JAR TP SCH (22:19)
[2017-12-29] MEDS: chlordiazePOXIDE HCL 10 MG CAPSULE PO SCH ×2 (06:18→10:54)
[2017-12-29] MEDS: PRENATAL VITAMINS W/ FOLIC ACID TABLET (FP) PO SCH (10:53)
[2017-12-29] MEDS: NICOTINE 14 MG/24 HOURS TOPICAL PATCH TD SCH (10:53)
[2017-12-29 11:24] VITALS: BP 131/86; PULSE 93; TEMP 96.4
--- NOTE | 2017-12-29 11:42 | PN ---
S Progress Note (SOAP) Subjective: alert,no complaint Objective: 12/29/17 11:40 Vital Signs Temperature 96.4 F L 12/29/17 11:23 Pulse Rate 93 H 12/29/17 11:23 Respiratory Rate 20 12/29/17 11:23 Blood Pressure 131/86 12/29/17 11:23 O2 Sat by Pulse Oximetry (%) Assessment: 12/29/17 11:41 patient is stable for discharge today Plan: discharge today,follow up with [facility]
--- NOTE | 2017-12-29 11:47 | DS ---
[facility] Detox Discharge Summary Admission Date: 12/26/17 Discharge Date: 12/29/17 - History Present History: Alcohol Dependence Additional Comments: follow up with [facility] for after care ,stable for discharge Pertinent Past History: hypertension nicotine dependence positive ppd seizure eczema - Physical Exam Results Vital Signs: Vital Signs Temperature 96.4 F L 12/29/17 11:23 Pulse Rate 93 H 12/29/17 11:23 Respiratory Rate 20 12/29/17 11:23 Blood Pressure 131/86 12/29/17 11:23 O2 Sat by Pulse Oximetry (%) Pertinent Admission Physical Exam Findings: withdrawal signs and symptom Vital Signs Temperature 96.4 F L 12/29/17 11:23 Pulse Rate 93 H 12/29/17 11:23 Respiratory Rate 20 12/29/17 11:23 Blood Pressure 131/86 12/29/17 11:23 O2 Sat by Pulse Oximetry (%) Laboratory Last Values WBC 6.9 K/mm3 (4.0-10.0) 12/26/17 08:00 RBC 3.70 M/mm3 (4.00-5.60) L 12/26/17 08:00 Hgb 11.8 GM/dL (11.7-16.9) 12/26/17 08:00 Hct 34.6 % (35.4-49) L 12/26/17 08:00 MCV 93.6 fl (80-96) 12/26/17 08:00 MCH 31.8 pg (25.7-33.7) 12/26/17 08:00 MCHC 34.0 g/dl (32.0-35.9) 12/26/17 08:00 RDW 16.7 % (11.9-15.9) H 12/26/17 08:00 Plt Count 147 K/MM3 (134-434) 12/26/17 08:00 MPV 7.8 fl (7.5-11.1) 12/26/17 08:00 PT with INR 12.90 SEC (9.7-13.0) 12/27/17 07:40 INR 1.14 (0.83-1.09) H 12/27/17 07:40 Sodium 139 mmol/L (136-145) 12/26/17 08:00 Potassium 4.3 mmol/L (3.5-5.1) 12/26/17 08:00 Chloride 105 mmol/L (98-107) 12/26/17 08:00 Carbon Dioxide 29 mmol/L (21-32) 12/26/17 08:00 Anion Gap 5 (8-16) L 12/26/17 08:00 BUN 12 mg/dL (7-18) 12/26/17 08:00 Creatinine 0.7 mg/dL (0.7-1.3) 12/26/17 08:00 Creat Clearance w eGFR > 60 (>60) 12/26/17 08:00 Random Glucose 87 mg/dL (74-106) 12/26/17 08:00 Calcium 8.7 mg/dL (8.5-10.1) 12/26/17 08:00 Total Bilirubin 0.6 mg/dL (0.2-1.0) 12/26/17 08:00 AST 81 U/L (15-37) H D 12/28/17 07:00 ALT 124 U/L (12-78) H 12/28/17 07:00 Alkaline Phosphatase 91 U/L (45-117) 12/26/17 08:00 Total Protein 8.4 g/dl (6.4-8.2) H 12/26/17 08:00 Albumin 3.2 g/dl (3.4-5.0) L 12/26/17 08:00 Urine Color Yellow 12/26/17 Unknown Urine Appearance Clear 12/26/17 Unknown Urine pH 5.0 (5.0-8.0) 12/26/17 Unknown Ur Specific [place] 1.018 (1.001-1.035) 12/26/17 Unknown Urine Protein 2+ (NEGATIVE) H 12/26/17 Unknown Urine Glucose (UA) Negative (NEGATIVE) 12/26/17 Unknown Urine Ketones Negative (NEGATIVE) 12/26/17 Unknown Urine Blood 2+ (NEGATIVE) H 12/26/17 Unknown Urine Nitrite Negative (NEGATIVE) 12/26/17 Unknown Urine Bilirubin Negative (<2.0 mg/dL) 12/26/17 Unknown Urine Urobilinogen Negative mg/dL (0.2-1.0) 12/26/17 Unknown Ur Leukocyte Esterase Negative (NEGATIVE) 12/26/17 Unknown Urine WBC (Auto) 1 /hpf (3-5) 12/26/17 Unknown Urine RBC (Auto) 7 /hpf (0-3) 12/26/17 Unknown Ur Epithelial Cells Rare /HPF (FEW) 12/26/17 Unknown Urine Bacteria Rare /hpf (NONE SEEN) 12/26/17 Unknown Urine Mucus Rare 12/26/17 Unknown RPR Titer Nonreactive (NONREACTIVE) 12/26/17 08:00 - Treatment Hospital Course: Detox Protocol Followed, Detoxed Safely, Responded well, Discharged Condition Good, Rehab Referral Accepted Patient has Accepted a Rehab Referral to: [facility] - Medication Discharge Medications: Ambulatory Orders Mirtazapine [Remeron -] 15 mg PO HS 03/14/17 - Diagnosis (1) Alcohol dependence with uncomplicated withdrawal Current Visit: Yes Status: Acute (2) Nicotine dependence Current Visit: Yes Status: Chronic Qualifiers: Nicotine product type: cigarettes Substance use status: uncomplicated Qualified Code(s): F17.210 - Nicotine dependence, cigarettes, uncomplicated (3) PPD positive, treated Current Visit: Yes Status: Chronic (4) Seizure disorder Current Visit: Yes Status: Chronic (5) Hypertension Current Visit: No Status: Chronic Qualifiers: Hypertension type: essential hypertension Qualified Code(s): I10 - Essential (primary) hypertension - AMA Did Patient Leave Against Medical Advice: No
== END 2017-12-29 12:00 | disposition home or self-care (01) | DRG 775 ==
LOC: YASAS 00:48 → Y6N 03:02
PROVIDERS: ADMIT Surgery; ATTEND Surgery
PROC: HZ2ZZZZ Detoxification Services for Substance Abuse Treatment (ICD-10-PCS; principal; 2017-12-26)
DX: F10.230 Alcohol dependence with withdrawal, uncomplicated (principal); F10.24 Alcohol dependence with alcohol-induced mood disorder; F17.210 Nicotine dependence, cigarettes, uncomplicated; I10 Essential (primary) hypertension; R76.11 Nonspecific reaction to tuberculin skin test without active tuberculosis; R94.5 Abnormal results of liver function studies; L30.8 Other specified dermatitis; M54.5 Low back pain; G89.29 Other chronic pain; Z86.69 Personal history of other diseases of the nervous system and sense organs; Z87.898 Personal history of other specified conditions
CPT/HCPCS: 36415; 80053; 81003; 81015; 84450; 84460; 85027; 85610; 86593; 93005; 93010; J0735